=== PATIENT | male | born 1985 | race Caucasian/White ===

== ENCOUNTER 2018-06-24 14:20 | Emergency (ER) | payer SELFPAY, OTHER | END 2018-06-24 17:21 | disposition home or self-care (01) | LOC: FTE 14:20 | DX: S83.005A Unspecified dislocation of left patella, initial encounter (principal); X58.XXXA Exposure to other specified factors, initial encounter; Y92.9 Unspecified place or not applicable | CPT/HCPCS: 29515; 73564; 99283-25 ==